=== PATIENT | female | born 1955 | race Caucasian/White ===

== ENCOUNTER → 2017-02-03 | Day surgery (SDC) | payer MEDICARE, BC ==
[~2017-02-03] MED LIST: ASPIR-TRIN325 MG PO; CYMBALTA; CYMBALTA PO; DULOXETINE HCL60 MG PO; EFFEXOR PO; FAMVIR500 MG PO; FENOFIBRATE145 M1 PO; FISH OIL 1,0001 CAP PO; HYZAAR 100-12.1 EACH PO; HYZAAR PO; KLONOPIN1 M1 PO; LO-DOSE ASPIRIN81 M1 PO; LOVAZA; LYRICA PO; NIACIN PO; NORVASC PO; NOXIFOL-D32500 UNIT PO; OMEGA 3 1,0001 EACH PO; TOPAMATE; TOPAMAX200 MG PO; TRICOR PO; ZYRTEC PO; ZYRTEC10 M1 PO
--- NOTE | ~2017-02-03 | OR ---
Unit #: [id number] #: [id number] Patient: ANGELICA DOTSON [id number] [facility] [address] [place], [place] [address] [id number] O MR#: [id number] NAME: ANGELICA DOTSON. ROOM: Date of Procedure: 02/03/2017 Admission Date: 02/03/2017 Surgeon: Behzad Mccarthy M.D. : 1955 Attending Physician: Behzad Mccarthy M.D. Primary Care Physician: Nina Allison M.D. PROCEDURE OPERATIVE NOTE PREOPERATIVE DIAGNOSIS Positive Cologuard test. POSTOPERATIVE DIAGNOSIS Diverticulosis and one small polyp at the rectosigmoid. PROCEDURE PERFORMED Colonoscopy to cecum with cold biopsy forcep polypectomy x1. SURGEON Behzad Mccarthy M.D. ANESTHESIA Monitored anesthesia. INDICATIONS A 61-year-old female was sent to the office because of a positive Cologuard test. She denied any gross blood per rectum and denies a family history of colorectal disease. Last colonoscopy was seven years ago and she stated it was normal. PROCEDURE Patient admitted to [facility], positively identified, and transported to the endoscopy suite. After appropriate monitoring and positioning, she was sedated by the nurse microfilmer. On rectal examination, there was no local anorectal pathology. She did have a little bit of an external hemorrhoidal skin tag at the anal verge but no active hemorrhoidal disease. Digital examination was normal. Colonoscope was passed through the anal verge throughout the extent of the colon to the cecum where the appendiceal orifice and ileocecal valve were photo documented. On careful antegrade and retrograde visualization, she had grey diverticulosis but most of the diverticula were in the left colon. At about 30 cm, there was a small area that looked like it possibly could be a small or early polyp but it was certainly not definitive. Biopsy forcep was used to remove the lesion and it was sent to laboratory for further evaluation. In the rectal vault, I retroflexed the scope and there was no internal hemorrhoidal disease. The patient tolerated the procedure well and was transported to recovery in stable condition. Findings were discussed with the family. I will call with the results of the pathological evaluation of the biopsy. Unit #: [id number] #: [id number] Patient: ANGELICA DOTSON Dictated by... Kasey Berrios/jennifer TD: 02/03/2017 16:53 JOB #: [id number] PROCEDURE OPERATIVE NOTE Page 1 of 1 X Behzad Mccarthy MD PROCEDURE OPERATIVE NOTE
== END | disposition home or self-care (01) ==
LOC: COPS 09:55
DX: K63.5 Polyp of colon (principal); K64.4 Residual hemorrhoidal skin tags; J44.9 Chronic obstructive pulmonary disease, unspecified; Z90.710 Acquired absence of both cervix and uterus; Z98.890 Other specified postprocedural states; Z88.5 Allergy status to narcotic agent
CPT/HCPCS: 88305

== ENCOUNTER → 2017-02-16 | Outpatient (CLI) | payer MEDICARE, BC ==
--- NOTE | ~2017-02-16 | NM22 ---
[facility] A Service of [facility] RADIOLOGY TEXT RESULTS PATIENT: ANGELICA DOTSON LOCATION: [facility] : [birth year] UNIT #: [id number] AGE: [address]: Behzad Mccarthy MD SEX: F ORDER DR: [id number] [facility] [address] [place], [place] [address] [id number] O MR#: [id number] Acc #: [id number] NAME: ANGELICA ODTSON : 1955 SEX: F STUDY DATE/TIME: 02/16/2017 8:01 UNIT: [facility] ROOM: STUDY DESCRIPTION: NM Hepatobiliary W GB Pharm Attending Physician: Behzad Mccarthy M.D. Referring Physician: Behzad Mccarthy M.D. Ordering Physician: Behzad Mccarthy M.D. Primary Care Physician: Nina Allison M.D. MEDICAL IMAGING REPORT This report is preliminary unless electronic signature is present EXAM HIDA scan with Kinevac CCK 02/16/2017 HISTORY Nausea after meals, right upper quadrant abdominal pain and right flank pain for 2 years worsening in the last month. FINDINGS The patient received intravenous injection of 6 mCi of technetium 99m tagged Choletec for hepatobiliary imaging. 1 hour following injection of the radiopharmaceutical the patient received an intravenous injection of 1.5 mcg of Kinevac. There is homogeneous distribution of the radiotracer throughout the liver. Gallbladder activity was seen after 30 minutes postinjection of the radiopharmaceutical. Following Kinevac injection the gallbladder ejection fraction was 53.6% (normal is greater than 30%). IMPRESSION Normal HIDA scan with gallbladder ejection fraction of 53.6% Dictated by... Sage Valentino M.D. THIS IS AN ELECTRONICALLY VERIFIED REPORT Sage Valentino M.D. at 02/17/2017 7:46 AM JAIMIE/azalia TD: 02/16/2017 12:02 JOB #: [id number] MEDICAL IMAGING REPORT Page 1 of 1 COPY
--- NOTE | ~2017-02-16 | US6 ---
[facility] A Service of [facility] RADIOLOGY TEXT RESULTS PATIENT: ANGELICA DOTSON LOCATION: [facility] : 53 UNIT #: [id number] AGE: [address]: Behzad Mccarthy MD SEX: F ORDER DR: [id number] [facility] [address] [place], [place] [address] [id number] O MR#: [id number] Acc #: [id number] NAME: ANGELICA DOTSON : 1955 SEX: F STUDY DATE/TIME: 02/16/2017 7:33 UNIT: [facility] ROOM: STUDY DESCRIPTION: US Abdominal Limited Attending Physician: Behzad Mccarthy M.D. Referring Physician: Behzad Mccarthy M.D. Ordering Physician: Behzad Mccarthy M.D. Primary Care Physician: Nina Allison M.D. MEDICAL IMAGING REPORT This report is preliminary unless electronic signature is present EXAM Right upper quadrant ultrasound, 02/16/2017 HISTORY Right upper quadrant abdominal pain for 2 years worsening over the last 2 months. FINDINGS The liver demonstrates an increase in echotexture with attenuation of the ultrasound beam characteristic of fatty infiltration. No cystic or solid mass lesions were seen in the liver. The intra and extrahepatic bile ducts are not dilated. The gallbladder is normal with no evidence of cholelithiasis, wall thickening or pericholecystic fluid. The common duct measures 6.0 mm. The pancreas and right kidney are normal. IMPRESSION Fatty infiltration of the liver. Otherwise negative right upper quadrant ultrasound. Dictated by... Sage Valentino M.D. THIS IS AN ELECTRONICALLY VERIFIED REPORT Sage Valentino M.D. at 02/17/2017 7:46 AM JAIMIE/jackie TD: 02/16/2017 09:07 JOB #: [id number] MEDICAL IMAGING REPORT Page 1 of 1 COPY
== END | disposition home or self-care (01) ==
LOC: CGUS 07:05
DX: R10.11 Right upper quadrant pain (principal); K76.0 Fatty (change of) liver, not elsewhere classified
CPT/HCPCS: 76705; 78227; A9537; J2805